=== PATIENT | female | born 1995 | race Caucasian/White ===

== ENCOUNTER 2018-05-13 19:19 | Emergency (ER) | payer SELFPAY ==
[2018-05-13 19:48] LABS: Bilirubin Negative (Negative); Blood, Urine Small (Negative); Clarity Clear (Clear); Glucose, Urine (Dipstick) Negative (Negative); Leukocyte Large (Negative); Nitrite Negative (Negative); Protein, Urine (Dipstick) Trace mg/dL (Neg-Trace); Urobilinogen 0.2 mg/dL (0.2-1.0)
[2018-05-13 19:50] LABS: Pregnancy Test - Urine (BHCG) Negative (Negative); Pregu Control Background? CLEAR/WHITE (CLR/WHITE); Pregu Control Bar Appear? YES (CONTROL BAR); Specific Gravity 1.024 (1.002-1.036)
[2018-05-13 19:55] LABS: Specific Gravity, Urine 1.024 (1.002-1.036)
[2018-05-13 19:56] LABS: Bacteria/HPF Rare-Few HPF (None Seen)
[2018-05-13] MEDS ORDERED: Acyclovir 200 mg Capsule ONE ×2 (21:11→21:12)
[2018-05-13] MEDS ORDERED: Nitrofurantoin Monohyd/M-Cryst 100 MG CAP ONE (21:15)
[2018-05-17 01:22] LABS: Chlamydia by PCR Not Detected (NotDetected); GC by PCR Not Detected (NotDetected)
== END 2018-05-13 21:34 | disposition home or self-care (01) ==
LOC: MADERS 19:19
DX: A60.04 Herpesviral vulvovaginitis (principal); N39.0 Urinary tract infection, site not specified; F17.210 Nicotine dependence, cigarettes, uncomplicated
CPT/HCPCS: 81003; 81015; 81025; 87077; 87086; 87252; 87480; 87491; 87510; 87591; 87660; 99283